=== PATIENT | female | born 1990 | race Caucasian/White ===

== ENCOUNTER 2017-02-10 15:08 | Emergency (ER) | payer MEDICAID ==
[~2017-02-10] VITALS: Ht 154.9 cm; Wt 54.4 kg
[2017-02-10] MEDS ORDERED: ACYCLOVIR (15:34)
[2017-02-10] MEDS: IBUPROFEN 100 MG/5 ML LIQUID UDC PO ONE (16:24)
[2017-02-10] MEDS ORDERED: IBUPROFEN 600 MG TABLET ONE (16:38)
--- NOTE | 2017-02-10 16:41 | NUR ---
PATIENT WA SEEN BY MD FOR SORE THROAT. AWAITING LAB RESULTS.
[2017-02-10] MEDS: MAG HYDROX/AL HYDROX/SIMETH 30 ML LIQUID UDC PO ONE (17:08)
[2017-02-10] MEDS: LIDOCAINE VISCUS 2% 15 ML UDC MM ONE (17:08)
[2017-02-10] MEDS ORDERED: MAG HYDROX/AL HYDROX/SIMETH 30 ML LIQUID UDC ONE (17:18)
[2017-02-10] MEDS ORDERED: LIDOCAINE VISCUS 2% 15 ML UDC ONE (17:19)
--- NOTE | 2017-02-10 17:27 | NUR ---
DC AND FOLLOW UP INSTRUCTIONS GIVEN AND EXPLAINED TO PT WHO STATES SHE UNDERSTANDS ALL INSTRUCTIONS
== END 2017-02-10 17:29 | disposition home or self-care (01) ==
LOC: ER 15:09
DX: J02.8 Acute pharyngitis due to other specified organisms (principal); B97.89 Other viral agents as the cause of diseases classified elsewhere
CPT/HCPCS: 36415; 86403; 87070; 99284; A4663